=== PATIENT | male | born 2005 | race Caucasian/White ===

== ENCOUNTER 2025-06-16 15:41 | Emergency (ER) | payer MEDICAID, SELFPAY ==
[2025-06-16 15:53] VITALS: BP 125/86; PULSE 86; RESP 18; TEMP 36.6; O2SAT 96
--- NOTE | 2025-06-16 16:01 | EDNOTE_ITS ---
ED Recheck Abnl Lab Rx-RME/HPI General Chief Complaint: Recheck/Abnormal Lab/Rx Stated Complaint: RX REFILL Time Seen by Provider: 06/16/25 15:44 Arrival date/time: 06/16/25 15:41 19-year-old male with medical history significant for schizophrenia and bipolar presents to the emergency department today with mother mother requesting refill on the patient's olanzapine Limitations: no limitations Related Data Previous Rx's ?Medication ?Instructions ?Recorded clindamycin HCl 300 mg capsule 300 mg PO TID #20 caps 11/22/23 ibuprofen 800 mg tablet 800 mg PO TID PRN pain #30 t abs 11/22/23 olanzapine 10 mg tablet 10 mg PO QPM 30 days #30 tab s 06/16/25 Allergies Allergy/AdvReac Type Severity Reaction Status Date / Time No Known Allergies Allergy Verified 02/27/24 12:59 Review of Systems Review of Systems Systems Reviewed: All systems reviewed, normal except as documented Constitutional Constitutional: Reports system reviewed and no additional complaints, except as documented, Denies fever(s) and Denies headache(s) Eyes Eyes: Reports system reviewed and no additional complaints, except as documented and Denies blurry vision ENT Ears, Nose, Mouth, and Throat: Reports system reviewed and no additional complaints, except as documented, Denies headache(s), Denies nasal congestion and Denies nasal discharge Cardiovascular Cardiovascular: Reports system reviewed and no additional complaints, except as documented, Denies chest pain and Denies dyspnea Respiratory Respiratory: Reports system reviewed and no additional complaints, except as documented, Denies chest congestion, Denies cough and Denies dyspnea Gastrointestinal Gastrointestinal: Reports system reviewed and no additional complaints, except as documented and Denies abdominal pain Integumentary/Breasts Skin/Breast: Reports system reviewed and no additional complaints, except as documented and Denies rash Neurologic Neurologic: Reports system reviewed and no additional complaints, except as documented, Reports as per HPI and Denies headache(s) Psychiatric Psychiatric: Reports system reviewed and no additional complaints, except as documented, Reports anxiety, Denies homicidal ideation, Denies hopelessness, Reports irritability and Denies suicidal ideation Past Medical History Past Medical History CARDIAC: Negative Cardiac Disorders or Congestive Heart Failure RESPIRATORY: Negative Chronic Obstructive Pulmonary Disease (COPD) or Asthma GENITOURINARY: Negative Renal Disease ENDOCRINE: Negative Diabetes Mellitus Type 1 or Diabetes Mellitus Type 2 HEMATOLOGIC: Negative Sickle Cell Disease PSYCHO/SOCIAL: Positive Bipolar Disorder, Anxiety and Attention Deficit Hyperactivity Disorder Social History SMOKING STATUS: Never smoker SUBSTANCE USE: marijuana ED Exam General Limitations: Present no limitations General appearance: Present alert and in no apparent distress Head Head exam: Present atraumatic Eye Eye exam: Present normal appearance, PERRL and EOMI ENT ENT exam: Present normal exam, normal oropharynx and mucous membranes moist Neck Neck exam: Present normal inspection, full ROM and trachea midline Chest Chest inspection: Present normal inspection and symmetric chest wall rise Respiratory Respiratory exam: Present normal lung sounds bilaterally Cardiovascular Cardiovascular exam: Present regular rate, normal rhythm and normal heart sounds Abdominal Exam Abdominal exam: Present soft and normal bowel sounds Extremities Exam Extremities exam: Present normal inspection and full ROM Back Exam Back exam: Present normal inspection and full ROM Neurological Exam Neurological exam: Present alert, oriented X3 and CN II-XII intact Psychiatric Psychiatric exam: Present normal affect and normal mood Skin Skin exam: Present warm, dry, intact and normal color Course Quality Measures none Vital Signs Vital signs: Vital Signs Temperature 97.9 F 06/16/25 15:53 Pulse Rate 86 06/16/25 15:53 Respiratory Rate 18 06/16/25 15:53 Blood Pressure 125/86 H 06/16/25 15:53 Pulse Oximetry (%) 96 06/16/25 15:53 Oxygen Delivery Method Room Air 06/16/25 15:53 O2 saturation 96% room air within normal limits Recheck / Abnormal Lab / Rx MDM Narrative MDM Narrative:: 19-year-old male with medical history significant for schizophrenia and bipolar presents to the emergency department today with mother mother requesting refill on the patient's olanzapine Mother is desperate for the patient to get his medication reports that she has all of his other medications except that when she reports that keeps him very calm and really needs the medication Medications refilled per her request Mother reports child's been on this medication for more than a year and tolerating well Initially medication was prescribed by psychiatry Patient discharged home in no distress to follow-up with primary care doctor in the next 24 to 48 hours and for any worsening symptoms to return to the ER immediately Patient data External records reviewed:: [facility] previous records Clinical information provided by:: patient Social determinants that could affect healthcare access:: none Patient has the following chronic illnesses:: None How is presenting disease/condition affected by chronic disease/condition?: no chronic disease Evaluation data The following diagnostics were reviewed and interpreted by me:: other (specify) Lab and/or radiology exams considered but not ordered:: Considered not ordered Interpretation Summary: N/A Medications / Prescriptions Medications or Prescriptions considered but not ordered:: Given Medication administrations:: Given Consultations Consultation(s) initiated? (list below): No Diagnosis Recheck Differential Diagnosis: encounter for medication refill and other Most likely diagnosis given after review of the tests above:: Schizophrenia, bipolar Admission Indicated Admission indicated?: not indicated Admission Request Was there a request for admission?: No Disposition Plan Disposition Plan: Discharge Discharge Attestation Discharge Attestation: The patient and all family members were given an opportunity to ask questions and understood the discharge instructions. Discharge instructions specifically effects, indications for sooner follow up or return to the emergency department, and the expected course of current diagnosis. Patient condition: Stable Discharge Plan Plan Patient Disposition: HOME (Self Care) Discharge Disposition comment: stable Prescriptions/Referrals Prescriptions/Med Rec: New olanzapine 10 mg tablet 10 mg PO QPM 30 Days Qty: 30 0RF No Action clindamycin HCl 300 mg capsule 300 mg PO TID Qty: 20 0RF ibuprofen 800 mg tablet 800 mg PO TID PRN (Reason: pain) Qty: 30 0RF Problem List Clinical Impression: Acute schizophrenia Patient/Caregiver Discharge Instructions Education Materials: ED Psychosis Additional Instructions: Please follow up with your primary care doctor in the next 24-48hrs for any worsening symptoms return here immediately Print Language: Honduran Stand Alone Forms: Mallory Award Info., Patient Portal Info Letter RICARDO/SHAISTA Supervising Physician RICARDO/SHAISTA Supervising Physician: Dr. garibay
== END 2025-06-16 16:24 | disposition home or self-care (01) ==
PROVIDERS: Emergency Provider Family Medicine; PCP Nurse Practitioner Family
DX: Z76.0 Encounter for issue of repeat prescription (principal); F20.9 Schizophrenia, unspecified
CPT/HCPCS: 99281